=== PATIENT | female | born 1965 | race Caucasian/White ===

== ENCOUNTER 2019-02-25 10:32 | Emergency (ER) | payer OTHER ==
[~2019-02-25] VITALS: Ht 167.6 cm; Wt 68.0 kg
[2019-02-25 10:53] LABS: URINE BILIRUBIN NEGATIVE (Negative); URINE BLOOD 2+ (Negative); URINE CLARITY SL CLOUDY; URINE COLOR YELLOW; URINE GLUCOSE-RANDOM NEGATIVE (Negative); URINE LEUKOCYTES-REFLEX 1+ (Negative); URINE PROTEIN TRACE (Negative); URINE SPECIFIC GRAVITY 1.025 (1.005-1.030)
[2019-02-25 10:54] LABS: URINE KETONES 3+ (Negative); URINE NITRITE-REFLEX POSITIVE (Negative)
[2019-02-25 11:03] LABS: BACTERIA-REFLEX >30 Many /HPF (None Seen); CASTS None Seen /LPF (None Seen); CRYSTALS None Seen /LPF (None Seen); MUCUS 4-6 Moderate strn/LPF (None Seen); SQUAMOUS 4-10 Moderate /LPF (0-3); URINE RBC 3-10 Few /HPF (0-2); URINE WBC-REFLEX 6-15 Few /HPF (0-5)
[2019-02-25 11:09] LABS: HEMATOCRIT 48.8 % (37.0-47.0); MCH 32.5 pg (26.0-34.0); MCHC 34.9 g/dL (28.0-37.0); MCV 92.9 fL (80.0-100.0); MPV 9.4 fl. (7.2-11.1); NUCLEATED RBCS 0 /100WBC; PLATELET COUNT* 279 thou/uL (150-400); RBC 5.25 mil/uL (4.20-5.00); RDW-CV 13.4 % (10.5-14.5); WBC 12.8 thou/uL (4.0-11.0)
[2019-02-25 11:20] LABS: ANION GAP 13 mmol/L (7-16); BUN 11 mg/dL (7-18); CALCIUM 9.3 mg/dL (8.5-10.1); CHLORIDE 97 mmol/L (98-107); CO2 26 mmol/L (21-32); CREATININE 0.8 mg/dL (0.6-1.3); GLUCOSE 112 mg/dL (70-99); POTASSIUM 3.4 mmol/L (3.5-5.1); SODIUM 136 mmol/L (136-145)
[2019-02-25 11:28] LABS: ABSOLUTE LYMPHOCYTES 0.4 thou/uL (0.8-5.3); ABSOLUTE MONOCYTES 0.9 thou/uL (0.0-1.2); ABSOLUTE NEUTROPHILS 11.5 thou/uL (1.6-8.1); ANISOCYTOSIS 1+; PLATELET ESTIMATE ADEQUATE; POIKILOCYTOSIS 1+
[2019-02-25 11:30] LABS: ALBUMIN 3.6 g/dL (3.4-5.0); ALKALINE PHOSPHATASE 130 U/L (46-116); LIPASE 69 U/L (73-393); SGOT 15 U/L (15-37); SGPT 21 U/L (30-65); TOTAL BILIRUBIN 0.9 mg/dL (<0.1-1.0); TROPONIN-I LEVEL <0.06 ng/mL (<0.06)
[2019-02-25] MEDS ORDERED: CARAFATE 1 GM TA1 G1 PO (12:16)
[2019-02-25] MEDS ORDERED: ZOFRAN ODT4 MG DISSOLVE (12:16)
[2019-02-25] MEDS ORDERED: HYDROCODONE-AP1 EAC6 PO (12:16)
[2019-02-25] MEDS ORDERED: KEFLEX500 M1 PO (12:16)
[2019-02-25 13:11] VITALS: BP 157/85
--- NOTE | 2019-02-27 12:35 | EKG ---
[place] [address] ELECTROCARDIOGRAM REPORT Name: JAIDA RICKETTS Room: [place]#: [id number] Admission: 02/25/19 Attend Phys: Discharge: 02/25/19 Date of : 65 Report #: [id number] THIS REPORT FOR: //name// [facility] ED Test Date: 2019-02-25 Test Time: 10:52:19 Pat Name: JAIDA RICKETTS Department: Room: Gender: F [employer] Technician: Gavin LORENZO : 1965 Requested By: Santos Riggs Order Number: [id number] MD: Eloy Anaya Measurements Intervals [place] Rate: 110 P: 69 AK: 156 QRS: 99 QRSD: 84 T: 57 QT: 330 QTc: 447 Interpretive Statements Sinus tachycardia Right atrial enlargement Consider right ventricular hypertrophy No previous ECG available for comparison Electronically Signed On 02-27-2019 12:35:35 CDT by Eloy Anaya [email or web address] <ELECTRONICALLY SIGNED> By: Eloy Anaya MD, [facility] 02/27/19 1235 1052 1052 Eloy Anaya MD, FACC /EPI
== END 2019-02-25 13:12 | disposition home or self-care (01) ==
LOC: M.ERS 10:32
PROVIDERS: Emergency Medicine Emergency Medical Services
DX: K25.9 Gastric ulcer, unspecified as acute or chronic, without hemorrhage or perforation (principal); N39.0 Urinary tract infection, site not specified; R11.2 Nausea with vomiting, unspecified